=== PATIENT | female | born 1980 | race Caucasian/White ===

== ENCOUNTER 2017-01-30 13:18 | Emergency (ER) | payer MEDICAID ==
[~2017-01-30] VITALS: Ht 170.2 cm; Wt 65.8 kg
[~2017-01-30 13:18] MED LIST: NORPTMEDS CO
[2017-01-30 15:19] VITALS: BP 141/95
== END 2017-01-30 16:33 | disposition home or self-care (01) ==
LOC: ER 13:18
DX: R10.9 Unspecified abdominal pain (principal); Z87.821 Personal history of retained foreign body fully removed; F17.210 Nicotine dependence, cigarettes, uncomplicated